=== PATIENT | female | born 1985 ===

== ENCOUNTER 2023-06-19 06:47 | Day surgery (SDC) | payer OTHER ==
[~2023-06-19] VITALS: Ht 160 cm; Wt 100.7 kg
[~2023-06-19 06:47] MED LIST: PROAIR RESPICL90 MCG IH
[2023-06-19] MEDS ORDERED: IBU800 MG PO (14:04)
[2023-06-19] MEDS ORDERED: NEURONTIN300 MG PO (14:04)
== END 2023-06-19 17:25 | disposition home or self-care (01) ==
LOC: CIR.AMB 06:47
PROVIDERS: ATTEND Obstetrics & Gynecology Gynecology
DX: N70.11 Chronic salpingitis (principal); R10.2 Pelvic and perineal pain; D27.0 Benign neoplasm of right ovary; Z20.822 Contact with and (suspected) exposure to COVID-19; Z88.0 Allergy status to penicillin

== ENCOUNTER 2023-07-12 07:04 | Outpatient (CLI) | payer OTHER ==
[~2023-07-12 07:04] MED LIST changes: +IBU800 MG PO; +NEURONTIN300 MG PO
== END 2023-07-12 07:12 | disposition home or self-care (01) ==
LOC: TOM 07:04
PROVIDERS: ATTEND Obstetrics & Gynecology Gynecology
DX: D25.1 Intramural leiomyoma of uterus (principal); R10.2 Pelvic and perineal pain